=== PATIENT | female | born 1960 | race Caucasian/White ===

== ENCOUNTER 2016-05-07 23:25 | Emergency (ER) | payer MEDICAID ==
[~2016-05-07] VITALS: Ht 157.5 cm; Wt 71.7 kg
[~2016-05-07 23:25] MED LIST: AMOX500C25 PO; IBUP-974 PO
[2016-05-07 23:50] VITALS: BP 131/77
--- NOTE | 2016-05-08 01:12 | NUR ---
Patient to bed 07.
--- NOTE | 2016-05-08 01:15 | NUR ---
55 Y/O F W/C/O ABD/ BACK PAIN , AND BURNING PAIN WITH URINATION X 5 DAYS. DENIES ANY FEVER, CHILLS, NAUSEA OR VOMMITING. NO S/S OF DISTRESS NOTED AT THE MOMENT. ER MD MADE AWARE.
--- NOTE | 2016-05-08 01:23 | NUR ---
Dr. Diamond evaluating patient at bedside.
[2016-05-08] MEDS ORDERED: PHENAZOPYRIDINE 100 MG TAB PO ONE (01:30)
[2016-05-08] MEDS ORDERED: SULFAMETH/TRIMETH DS 800/160MG 1 TAB PO ONE (01:30)
[2016-05-08 01:48] VITALS: BP 134/79
--- NOTE | 2016-05-08 01:48 | NUR ---
Patient discharged with v/s stable. Written and verbal after care instructions given and explained. Patient alert, oriented and verbalized understanding of instructions. Ambulatory with steady gait. All questions addressed prior to discharge. ID band removed. Patient advised to follow up with PMD OR RETURN TO ER IF CONDITION WORSENS. Rx of BACTRIM AND PYRIDIUM given. Patient educated on indication of medication including possible reaction and side effects. Opportunity to ask questions provided and answered.
== END 2016-05-08 01:38 | disposition home or self-care (01) ==
LOC: MED 23:25
DX: N39.0 Urinary tract infection, site not specified (principal)
CPT/HCPCS: 81002; 81025; 99283

== ENCOUNTER 2016-07-15 09:30 | Emergency (ER) | payer MEDICAID ==
[~2016-07-15] VITALS: Ht 160 cm; Wt 74.8 kg
[2016-07-15 09:35] VITALS: BP 134/84
--- NOTE | 2016-07-15 09:45 | NUR ---
Patient ambulated to bed 3 with family. RN evaluating patient at bedside.
--- NOTE | 2016-07-15 09:47 | NUR ---
55F BIB SELF C/O URINARY BURNING W/ FREQUENCY X 2 WEEKS; PT C/O SUPRAPUBIC PAIN WITH AND WITHOUT URINATION, BURNING, RADIATES TO MID-UPPER ABDOMEN, 6/10 X 2 WEEKS; PT DENIES N/V/D AT THIS TIME; PT A&OX4, PERRLA, BL LUNG SOUNDS CLEAR, RR EVEN/UNLABORED, SKIN IS WARM/DRY/INTACT AT THIS TIME; PT RESTING IN BED W/ HOB ELEVATED AND IN LOWEST POSITION; POSITIONED FOR COMFORT; ER MD MADE AWARE OF STATUS. WILL CONTINUE TO MONITOR.
--- NOTE | 2016-07-15 09:50 | NUR ---
Dr. Wilde evaluating patient at bedside.
[2016-07-15] MEDS ORDERED: HYDROcodone/APAP 5/325 MG 1 TAB TAB PO ONE (10:05)
--- NOTE | 2016-07-15 10:20 | NUR ---
PER ER MD DR. ORONA, NO IV NEEDED AT THIS TIME; PT APPEARS TO BE RESTING COMFORTABLY IN BED; VSS; NO ACUTE DISTRESS NOTED AT THIS TIME; WILL CONTINUE TO MONITOR.
[2016-07-15 10:24] LABS: BASOPHILS # (AUTO) 0.1 K/uL (0.00-0.22); BASOPHILS % (AUTO) 1.8 % (0.0-2.0); EOSINOPHILS # (AUTO) 0.1 K/uL (0-0.4); EOSINOPHILS % (AUTO) 1.6 % (0.0-4.0); HEMOGLOBIN 14.3 g/dL (12.0-16.0); LYMPHOCYTES % (AUTO) 39.3 % (20.5-51.1); MEAN CORPUSCULAR HEMOGLOBIN 27 pg (27-31); MEAN CORPUSCULAR HGB CONC 32 g/dL (33-37); MEAN CORPUSCULAR VOLUME 84 fL (80-94); MONOCYTES # (AUTO) 0.4 K/uL (0.8-1.0); MONOCYTES % (AUTO) 5.5 % (1.7-9.3); NEUTROPHILS % (AUTO) 51.8 % (42.2-75.2); PLATELET COUNT (AUTO) 290 K/uL (140-450); RED BLOOD CELL COUNT(AUTO) 5.22 MIL/uL (4.20-5.40); RED CELL DISTRIBUTION WIDTH 12.6 % (11.6-13.7); WHITE BLOOD COUNT (AUTO) 7.6 K/uL (4.8-10.8)
[2016-07-15 10:26] LABS: APPEARANCE,URINE CLEAR (CLEAR); BILIRUBIN,URINE NEGATIVE (NEGATIVE); BLOOD, URINE NEGATIVE (NEGATIVE); COLOR,URINE YELLOW (YELLOW); LEUKOCYTE ESTERASE ,URINE TRACE (NEGATIVE); NITRITE, URINE NEGATIVE (NEGATIVE); PROTEIN,URINE NEGATIVE (NEGATIVE); UGLUCOSE NEGATIVE (NEGATIVE); UROBILINOGEN,URINE 0.2 EU/dL (0.2 - 1)
[2016-07-15 10:33] LABS: CALCIUM 9.3 mg/dL (8.5-10.1); CARBON DIOXIDE 23.2 mmol/L (21-32); CREATININE 0.8 mg/dL (0.6-1.3); POTASSIUM 4.2 mmol/L (3.5-5.1)
[2016-07-15 10:37] LABS: BACTERIA,URINE None Seen /HPF (None Seen); RBC,URINE 0-5 (RARE) /HPF (0-5); SQUAMOUS EPITHELIAL CELL,UR 0-3 (FEW) /LPF (0-3 (FEW)); WBC,URINE 0-5 (RARE) /HPF (0-5)
[2016-07-15 10:39] LABS: ALBUMIN 3.8 g/dL (3.4-5.0); TOTAL BILIRUBIN 0.4 mg/dL (0.0-1.0); TOTAL PROTEIN, SERUM 7.9 g/dL (6.4-8.2)
[2016-07-15] MEDS ORDERED: ONDANSETRON 4 MG ODT PO ONE (10:55)
[2016-07-15 11:12] VITALS: BP 124/76
--- NOTE | 2016-07-15 11:12 | NUR ---
Patient discharged with v/s stable. Written and verbal after care instructions given and explained. Patient alert, oriented and verbalized understanding of instructions. Ambulatory with steady gait. All questions addressed prior to discharge. ID band removed. Patient advised to follow up with PMD. Rx of MOTRIN 600MG given. Patient educated on indication of medication including possible reaction and side effects. Opportunity to ask questions provided and answered.
== END 2016-07-15 11:12 | disposition home or self-care (01) ==
LOC: MED 09:30
DX: R10.31 Right lower quadrant pain (principal); E78.00 Pure hypercholesterolemia, unspecified; Z88.0 Allergy status to penicillin; Z98.890 Other specified postprocedural states
CPT/HCPCS: 36415; 80053; 81001; 81025; 83690; 85025; 99284; S0119